=== PATIENT | male | born 1990 | race Caucasian/White ===

== ENCOUNTER 2023-09-19 12:55 | Emergency (ER) | payer SELFPAY ==
[2023-09-19 13:00] VITALS: BP 172/96
--- NOTE | 2023-09-19 13:55 | ED.GENMED ---
History of Present Illness
General
Chief Complaint: Fall
Source: patient
Exam Limitations: none
Time Seen by Provider: 09/19/23 13:18
Nursing documentation reviewed up to this point in time: agreed with
History of Present Illness
History of Present Illness:
33-year-old male presenting to the emergency department today with concerns of left lateral rib discomfort over the past week after falling and hitting his left lower rib. Ongoing pain to the area since denies chest pain shortness of breath
abdominal pain changes in bowel movements or urination, nausea or vomiting. No fevers.
Past History
Past History
ED Past Medical History: None
ED Past Surgical History: Other (Adnoids and deviated septal repair)
Social History
Tobacco: Non-smoker
Alcohol: Occasional
Personal: Single
Living: with family
Employment: Employed
Review of Systems
Review of Systems
Allergies reviewed?: Yes
All Other Systems: ROS reviewed and negative except as documented in HPI and ROS
Phy Exam
Physical Exam
Physical Exam:
GENERAL: Alert , in no apparent distress
EYE: pupils equal and reactive
NECK: Supple, no significant adenopathy.
ENT: o/p clr, mmm.
CARDIAC: Regular rate and rhythm .
LUNGS: Clear breath sounds bilaterally, no acute respiratory distress, no wheezes/rales/rhonchi
ABDOMEN: Soft, without focal tenderness, no r/g, no cvat
NEUROLOGICAL: Alert and oriented, no focal neuro deficits
SKIN: Warm and dry, skin intact.
MUSCULOSKELETAL: Left lower lateral rib discomfort to palpation no overlying skin changes no edema, well perfused.
PSYCH: Normal and appropriate interaction.
Course
Orders/Labs/Results
Orders:
Orders
09/19/23 13:03
Ribs, Left 3 View W/PA Chest CR [CR Ribs-left 3 Vw W/pa Chest] Urgent
Comment:
Reason For Exam: Injury/Trauma
Vital Signs
Initial and Last Documented VS:
Initial Vital Signs
Temp Pulse Resp BP Pulse Ox
98.1 F 119 18 172/96 95
09/19/23 13:00 09/19/23 13:00 09/19/23 13:00 09/19/23 13:00 09/19/23 13:00
Last Documented Vital Signs
Temp Pulse Resp BP Pulse Ox
98.1 F 119 18 172/96 98
09/19/23 13:00 09/19/23 13:00 09/19/23 13:00 09/19/23 13:00 09/19/23 13:29
MDM/Problems Addressed
MDM/Problems Addressed:
33-year-old male presenting to the emergency department today with concerns of left lower lateral posterior. Claims this occurred after a fall. No signs of complication at this point initially was tachycardic but heart rate improved to 80 without
specific treatment. He claims that initially when the initial heart rate was tested he was specifically in pain due to walking. No abdominal pain or signs of local complication. Lungs are clear. X-ray showing 10th rib fracture no lung changes.
Plan to treat symptomatically otherwise stable for discharge.
*Critical Care Note
Total Time (30-74mins, 75-104mins- exclusive of procedures): Not Applicable
ED Attending Note
-
Portions of this chart may have been created with voice recognition software.� Occasional wrong word or��sound alike� substitutions may have occurred due to the inherent limitations of voice recognition software.
Discharge Plan
Departure
Patient Disposition: Home (Routine Discharge)
Date of Disposition: 09/19/23
Time of Disposition: 13:58
Patient with high blood pressure during this ER visit?: No
Condition: Good
Covid-19: Not Applicable
Discharge Problem:
Fracture of rib
Instructions: Rib Fracture or Bruised Rib ED
Prescriptions:
New
oxycodone 5 mg tablet
5 mg PO Q6H PRN (Reason: Pain) Qty: 7 0RF
No Action
meclizine 25 MG tablet
25 mg PO TID Qty: 15 0RF
Activity Restrictions/Additional Instructions:
You came to the emergency department today with concerns of rib discomfort. You are found to have a rib fracture. Please take Motrin and Tylenol at baseline for symptoms and otherwise take oxycodone 1 tab every 4-6 hours for severe pain. Return
to the emergency department any worsening, new or concerning symptoms. In the meantime please use the incentive spirometer to avoid any complications.
Interventions
Interventions:
*Risk Screen - Suicide Last Done: 09/19/23 13:00
*General Assessment Last Done: 09/19/23 13:00
*Neglect/Abuse Screening Last Done: 09/19/23 13:00
*ED COVID-19 Vaccine History Last Done: 09/19/23 13:00
ED-Musculoskeletal Assessment Last Done: 09/19/23 13:27
ED- Neurological Assessment Last Done: 09/19/23 13:27
ED-Skin Assessment Last Done: 09/19/23 13:27
Discharge Date and Time
Print Language: NIUEAN
[2023-09-19] MEDS: TORADOL 30 MG IM (14:22)
[2023-09-19 14:34] VITALS: BP 145/105
== END 2023-09-19 14:36 | disposition home or self-care (01) ==
LOC: EMR 12:55
PROVIDERS: EMERGENCY PHYSICIAN Emergency Medicine; FAMILY PHYSICIAN Family Medicine
DX: S22.32XA Fracture of one rib, left side, initial encounter for closed fracture (principal); W19.XXXA Unspecified fall, initial encounter; Z88.5 Allergy status to narcotic agent
CPT/HCPCS: 99284; 96372; 71101